=== PATIENT | female | born 1985 | race Two or more races ===

== ENCOUNTER 2020-01-23 09:45 | Inpatient (IN) | payer OTHER ==
[~2020-01-23] VITALS: Ht 165.1 cm; Wt 86.2 kg
[2020-02-04] MEDS ORDERED: PRENATAL TABLE1 EAC1 PO (09:33)
[2020-02-06] MEDS ORDERED: Ferro-Plex CAPLET PO (12:21)
== END 2020-02-06 12:51 | disposition home or self-care (01) | DRG 807 ==
LOC: OB/GYN 02-04 08:33 → LDR 02-04 08:33 → OB/GYN 02-04 18:22
PROVIDERS: ADMIT Obstetrics & Gynecology; ATTEND Obstetrics & Gynecology
PROC: 10E0XZZ Delivery of Products of Conception, External Approach (ICD-10-PCS; principal; 2020-02-04)
PROC: 4A1HXFZ Monitoring of Products of Conception, Cardiac Rhythm, External Approach (ICD-10-PCS; 2020-02-04)
PROC: 3E0P7VZ Introduction of Hormone into Female Reproductive, Via Natural or Artificial Opening (ICD-10-PCS; 2020-02-04)
DX: O80 Encounter for full-term uncomplicated delivery (principal); Z37.0 Single live birth; Z3A.39 39 weeks gestation of pregnancy; Z20.828 Contact with and (suspected) exposure to other viral communicable diseases